=== PATIENT | female | born 1990 | race Caucasian/White ===

== ENCOUNTER 2025-05-01 08:46 | Outpatient (REF) | payer BC, SELFPAY ==
--- NOTE | ~2025-05-01 | XR_ITS ---
EXAMINATION: XR SKULL CLINICAL INFORMATION: M95.2 - Other acquired deformity of head COMPARISON: None available. TECHNIQUE: 5 views of the skull were obtained. FINDINGS: The paranasal sinuses are grossly clear. Mastoid air cells appear pneumatized. Orbits appear to be unremarkable. No fracture is evident. Dental hardware is present. XR/XR skull min 4V IMPRESSION: No gross abnormality. Electronically signed by: Abhinav Guerrero MD 05/01/2025 11:36 AM EDT
== END 2025-05-01 08:47 | disposition home or self-care (01) ==
LOC: HO.XRAY 08:46
DX: M95.2 Other acquired deformity of head (principal); R22.1 Localized swelling, mass and lump, neck; H44.002 Unspecified purulent endophthalmitis, left eye; F31.9 Bipolar disorder, unspecified; F41.9 Anxiety disorder, unspecified; F90.9 Attention-deficit hyperactivity disorder, unspecified type; J45.21 Mild intermittent asthma with (acute) exacerbation; Q79.60 Ehlers-Danlos syndrome, unspecified
CPT/HCPCS: 70260; 96127

== ENCOUNTER 2025-05-01 08:46 | Outpatient (AMB) | payer BC, SELFPAY ==
--- NOTE | 2025-05-01 09:11 | MHC.PC.OV ---
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: Patient has dentist HPI 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 xray, Medications: Family HX: Problem: The patient is a 35-year-old female presenting with concerns regarding a lump on the neck, pink eye, and general health maintenance. The patient has a history of bipolar disorder, ADHD, and anxiety, managed by her psychiatrist with lithium and topiramate. Asthma is generally inactive but can be triggered by colds. A lump on the neck has been present for two years, suspected to be a lipoma, with an ultrasound planned. The patient experienced pink eye, using erythromycin ointment effectively, and attributes recurrence to her dog sleeping on her bed. 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 left eye pink eye-erythromycin ointment cervical neck posterior, more towards the left, lump appears to be a lipoma-for 2 years genetics referral [facility] [place] [facility], blue tint on scleara, hypermobile joints [facility] Medical History (Updated 05/03/25 @ 00:27 by DEBO Pizano) Asthma Anxiety ADHD Bipolar 1 disorder Surgical History [place] teeth removed Social History Household Members: Children Housing: House Alcohol intake: current Patient Tobacco Use Status: Current everyday Tobacco user Tobacco use type: Cigarette Cigarettes Per Day: 3 service: No Current occupational status: employed 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 1. Little interest or pleasure in doing things: more than half the days 2. Feeling down, depressed, or hopeless: several days 3. Trouble falling or staying asleep, or sleeping too much: several days 4. Feeling tired or having little energy: more than half the days 5. Poor appetite or overeating: more than half the days 6. Feeling bad about yourself - or that you are a failure or have let yourself or your family down: several days 7. Trouble concentrating on things, such as reading the newspaper or watching television: several days 8. Moving or speaking so slowly that other people could have noticed. Or the opposite - being so fidgety or restless that you have been moving around a lot more than usual: several days 9. Thoughts that you would be better off or of hurting yourself in some way: not at all Total score: 11 Depression Screening Interpretation: Positive Depression Screening Done: Yes 20475 - PHQ-9 Billing: Yes Source: Developed by Drs. Mc Syed, Margarita Spears, Minh Polo and colleagues, with an educational [place] from [employer]. Thrive Questionnaire Date Thrive assessed: 05/01/25 I am a: Patient What is your living situation today?: I have a steady place to live Within the past 12 months, did the food you bought not last and you didn't have the money to get more?: Never true Within the past 12 months, did you worry whether your food would run out before you got money to buy more?: Often true Do you have trouble paying for medicines?: No Do you have trouble getting transportation to medical appointments?: No Do you have trouble paying your heating and electricity bill?: No Do you have trouble taking care of your child, family member or friend?: No Do you have trouble with day-to-day activities such as bathing, preparing meals, shopping, managing finances, etc.?: No Are you currently unemployed and looking for a job?: No Are you interested in more education?: No Please select the resources that you would like help with: None Currently or been in a relationship where the following occur: No concerns reported THRIVE Score: 1 AUDIT C Alcohol Use Questionnaire (AUDIT-C) 1. How often do you have a drink containing alcohol?: 2-4 times a month 2. How many drinks containing alcohol do you have on a typical day when you are drinking?: 1 or 2 3. How often do you have six or more drinks on one occasion?: Never Total Score: 2 JOAQUINA-7 AMB Questionnaire JOAQUINA-7 Date JOAQUINA - 7 assessed: 05/01/25 Feeling nervous, anxious, or on edge: 1 = Several days Not being able to stop or control worryin = Several days Worrying too much about different things: 1 = Several days Trouble relaxin = Several days Being so restless that it is hard to sit still: 1 = Several days Becoming easily annoyed or irritable: 1 = Several days Feeling afraid as if something awful might happen: 0 = Not at all Total JOAQUINA-7 score (0-4 normal; 5-9 mild; 10-14 moderate; 15-21 severe): 6 Source: Developed by Drs. Mc Syed, Margarita Spears, Minh Polo and colleagues, with an educational h[place] from [employer]. JOAQUINA-7 Assessment Billing JOAQUINA-7 Assessment Tool: JOAQUINA-7 Assessment 00749 Review of Systems Const Reports fatigue (Especially after eating) and Denies headache(s) Eyes Reports itchy eyes (and erythematous in the corners of eyes), Denies loss of vision and Reports other (Bluish tint sclera) ENT Denies vertigo, Denies dizziness, Denies headache(s) and Denies sore throat Card Denies chest pain, Denies leg edema and Denies lightheadedness Resp Denies cough, Denies hemoptysis and Denies wheezing GI Denies abdominal pain, Denies melena, Denies constipation, Denies diarrhea and Denies vomiting Denies urinary frequency, Denies dysuria and Denies urinary urgency Musc Denies arthralgias, Denies joint swelling, Denies numbness, Denies tingling and Reports other (Hypermobile joints) Neuro Denies Abnormal speech present, Denies behavioral changes, Denies vertigo, Denies dizziness, Denies headache(s), Denies loss of vision, Denies memory loss, Denies numbness and Denies tingling Psych Denies anxiety, Denies behavioral changes, Denies depression, Denies memory loss and Denies panic attacks Endo Reports fatigue (Especially after eating) Delano/Lymph Denies easy bleeding and Denies easy bruising Aller/Immun Reports itchy eyes (and erythematous in the corners of eyes) and Denies wheezing Physical exam (Primary Care) Vital Signs: Last Vital Signs Temp 97.3 F 05/01/25 09:27 Pulse 70 05/01/25 09:27 Resp 18 05/01/25 09:27 BP 92/60 05/01/25 09:27 Pulse Ox 98 05/01/25 09:27 Oxygen Delivery Method Room Air 05/01/25 09:27 BMI result Body Mass Index 26.4 Tobacco/Smoking Status: Tobacco use Status Tobacco use date assessed 05/01/25 05/01/25 09:20 Patient Tobacco Use Status Current everyday Tobacco 05/01/25 09:36 Tobacco use type Cigarette 05/01/25 09:36 PHQ-9: PHQ-9 Score PHQ-9: Total score 05/01/25 21:21 Depression Screening Interpretation: Positive Thrive Assessment: Date of Thrive Assessment Date Thrive assessed 05/01/25 05/01/25 09:20 Currently or been in a relationship where the following occur: No concerns reported Const General: healthy appearing, no acute distress, alert and awake Nutritional Appearance: well nourished Orientation/consciousness: oriented to person, oriented to place and oriented to time HENMT Head: Yes palpable skull fracture (Old (deformity the left frontal)) Ears: TM's normal bilaterally General nose exam: Normal nasal mucous membranes and turbinates present Eyes Eyelids: Yes eyelid abnormality (Left eye stye) Conjunctivae: conjunctival abnormal bilateral (Erythematous) Sclerae: scleral abnormal bilateral (blue tint to bilateral sclera) scleral exudate purulent Pupils: Equal, round and reactive pupils present Neck Neck: Yes no lymphadenopathy and Yes no JVD Thyroid: Thyroid normal Carotids: no bruits Resp Effort & Inspection: normal respiratory effort and not tachypneic Auscultation: no crackles, no rales, no rhonchi and no wheezes Cardio Rate: regular rate Rhythm: regular rhythm Heart sounds: no murmurs and normal S1 and S2 GI Palpation (GI): Soft to palpation, nontender, no hepatomegaly and no splenomegaly Auscultation: normal bowel sounds Skin General skin exam: no rashes or lesions noted and dry skin Neuro General: oriented to person, oriented to place and oriented to time Cranial nerves: Yes Equal, round and reactive pupils present Speech: No Abnormal speech present Gait exam (Neuro): Normal gait present Motor exam (neuro): no tremor noted Extrem Right upper extremity: full ROM Left upper extremity: full ROM Right lower extremity: full ROM; no edema Left lower extremity: full ROM; no edema Psych Mental Status: mental status grossly normal Speech and movement: Normal speech and movement present Affect: normal affect Attitude: cooperative Thought process: Normal thought process present Coding Level of Care Code New Pt Level 4 (78246) Diagnoses 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 Localized swelling, mass and lump, neck R22.1 Purulent eye infection H44.009 Bipolar 1 disorder F31.9 Anxiety F41.9 Attention deficit hyperactivity disorder (ADHD), unspecified ADHD type F90.9 Attention deficit-hyperactivity disorder type: unspecified Mild intermittent asthma with acute exacerbation J45.21 Asthma severity: mild Asthma persistence: intermittent Asthma complication type: with acute exacerbation 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 We will order a skull x-ray to further evaluate. (2) Localized swelling, mass and lump, neck: Code(s): R22.1 - Localized swelling, mass and lump, neck Category: Medical Plan: An ultrasound is planned to evaluate the lump on the neck, suspected to be a lipoma. (3) Purulent eye infection: Code(s): H44.009 - Unspecified purulent endophthalmitis, unspecified eye Category: Medical Plan: Erythromycin ointment is prescribed for treatment of pink eye. (4) Bipolar 1 disorder: Code(s): F31.9 - Bipolar disorder, unspecified Category: Medical Plan: The patient continues management with lithium and topiramate under the care of her psychiatrist. (5) Anxiety: Code(s): F41.9 - Anxiety disorder, unspecified Category: Medical Plan: Anxiety is managed alongside bipolar disorder by the psychiatrist. (6) ADHD: Code(s): F90.9 - Attention-deficit hyperactivity disorder, unspecified type Category: Medical Qualifiers: Attention deficit-hyperactivity disorder type: unspecified Qualified Code(s): F90.9 - Attention-deficit hyperactivity disorder, unspecified type Plan: The patient is not currently on medication for ADHD due to bipolar disorder management. (7) Asthma: Code(s): J45.909 - Unspecified asthma, uncomplicated Category: Medical Qualifiers: Asthma severity: mild Asthma persistence: intermittent Asthma complication type: with acute exacerbation Qualified Code(s): J45.21 - Mild intermittent asthma with (acute) exacerbation Plan: Asthma is generally inactive but an albuterol inhaler is prescribed for emergency use. 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 Referral for genetic testing is planned to confirm suspected Andrez-Danlos Syndrome. Orders: Orders US soft tiss head and/or neck 05/01/25 R22.1 - Localized swelling, mass and lump, neck Comprehensive [place]. Panel Fast 05/01/25 Z00.00 - Encounter for general adult medical examination without abnormal findings Lipid Panel 05/01/25 Z00.00 - Encounter for general adult medical examination without abnormal findings TSH reflex Free T4 05/01/25 Z00.00 - Encounter for general adult medical examination without abnormal findings UA CC w/rflx Micro + Cult 05/01/25 Z00.00 - Encounter for general adult medical examination without abnormal findings Vitamin D 25-OH Total 05/01/25 Z00.00 - Encounter for general adult medical examination without abnormal findings XR skull min 4V 05/01/25 M95.2 - Other acquired deformity of head Complete Blood Count Auto Diff 05/01/25 Z00.00 - Encounter for general adult medical examination without abnormal findings Referrals Genetics Referral Q79.60 - Andrez-Danlos syndrome, unspecified Medications: New erythromycin 0.5 inches ophthalmic (eye) QID 84 grams 0RF albuterol sulfate 90 mcg/actuation (Ventolin HFA) 2 puffs inhalation Q4-6H PRN 8.5 grams 2RF shortness of breath or wheezing
[2025-05-01 09:27] VITALS: BP 92/60; PULSE 70; RESP 18; TEMP 36.3; O2SAT 98; BMI 26.4
--- OUTSIDE RECORDS SUMMARY | 2025-05-01 09:51 | XMS_ITS | Clinical Summary ---
Author Organization [facility] Address [address] [place] [phone] Phone Care Team Providers Care Raw Scales Operator Name Role Phone Unavailable Primary Care Provider Unavailabl e Immunizations Immunization Administration Dates Next Due DTaP 03/31/1995, 2,1990,1990,1990 Hep B, ped/adol 05/15/1995,12/06/1994,10/19/1994 Hib (PRP-T) 07/03/1991, 1,1990,1989 Influenza 06/17/2005,06/11/2003,07/26/2002 MMR 03/31/1995,07/03/1991 OPV 03/31/1995, 2,1990,1989 Td (adult) ([facility] [place]), 5 Lf t etanus toxoid, PF, adsorbed 06/28/2001 Social History Tobacco Use Types Packs/Day Years Used Date Smoking Tobacco: Never Assessed Comments Unknown Sex and Gender Information Value Date Recorded Sex Assigned at Not on file Legal Sex Female 6:09 PM EDT Gender Identity Not on file Sexual Orientation Not on file Plan of Treatment Health Maintenance Due Date Last Done Comments DTaP,Tdap,and Td Vaccines (6 - Tdap) 06/29/2001 06/28/2001, 03/31/1995, 12/02/1991, Additional history exists Varicella Vaccines (1 of 2 - 13+ 2-dose series) 2003 HPV Vaccines (1 - 3-dose SCDM series) 2017 Influenza Vaccines (#1) 2025 06/17/20 05, 06/11/2003, 07/26/2002 COVID-19 Vaccine ( season) 2025 HIB Vaccines Completed 07/03/1991, 12/19, 1990, Additional history exists IPV Vaccines Completed 03/31/1995, 11/19, 1990, Additional history exists MMR Vaccines Completed 03/31/1995, 07/03/1991 Hepatitis B Vaccines Completed 05/15/1995, 12/06/1994, 10/19/1994 Hepatitis A Vaccines Aged Out No long er eligible based on patient's age to complete this topic Men B Vaccine Aged Out No longer elig ible based on patient's age to complete this topic Meningococcal Vaccine Aged Out No loraine juancho eligible based on patient's age to complete this topic Pneumococcal Vaccine Aged Out No long er eligible based on patient's age to complete this topic
--- OUTSIDE RECORDS SUMMARY | 2025-05-01 09:51 | XMS_ITS | Clinical Summary ---
Author Organization [employer] Address [address] [place] [address] Care Team Providers Care Econometrician Name Role Phone Unavailable Primary Care Provider Unavailabl e Social History Tobacco Use Types Packs/Day Years Used Date Smoking Tobacco: Never Assessed Comments Unknown Sex and Gender Information Value Date Recorded Sex Assigned at Not on file Legal Sex Female 10:14 AM EDT Gender Identity Not on file Sexual Orientation Not on file Plan of Treatment Health Maintenance Due Date Last Done Comments Depression Screening 1990 HIV Screening 1990 SDOH Screening 1990 Disability Screening 1990 Alcohol/Substance Use Screening 2002 Tobacco Screening 2002 Family Planning (PISQ) 2005 HPV Vaccines (1 - 3-dose series) 2005 Hepatitis C Screening 2008 DTaP/Tdap/Td Vaccines (1 - Tdap) 2009 Hepatitis B Vaccines (1 of 3 - 19+ 3-dose series) 2009 Pap Smear 2011 Cervical Cancer Screening 2020 HPV/Cotest 2020 COVID-19 Vaccine (1 - 2023-2 5 season) 2025 Influenza Vaccine (#1) 2025 Zoster Vaccines (1 of 2) 2040 RSV Patients and Pa tients Aged 60 years or older (1 - 1-dose 75+ series) 2065 HIB Vaccines Aged Out No longer eligi ble based on patient's age to complete this topic Hepatitis A Vaccines Aged Out No long er eligible based on patient's age to complete this topic IPV Vaccines Aged Out No longer eligi ble based on patient's age to complete this topic Meningococcal B Vaccine Aged Out No l onger eligible based on patient's age to complete this topic Meningococcal Vaccine Aged Out No loraine juancho eligible based on patient's age to complete this topic Pneumococcal Vaccine: Pediat rics (0 to 5 Years) and At-Risk Patients (6 to 49) Years Aged Out No longer eligible b ased on patient's age to complete this topic RSV under 20 months Aged Out No longe r eligible based on patient's age to complete this topic Rotavirus Vaccines Aged Out No longer eligible based on patient's age to complete this topic Insurance [facility]
--- OUTSIDE RECORDS SUMMARY | 2025-05-01 09:51 | XMS_ITS | Encounter Summary ---
Author Organization [facility] Address [address] [place] [phone] Phone Care Team Providers Care Ditch Repairer Name Role Phone Unavailable Primary Care Provider Unavailabl e Encounter Details Date Type Department Care Team (Late st Contact Info) Description 01/07/2018 Conversion [facility]counter [facility] [address] [place] [address] Social History Tobacco Use Types Packs/Day Years Used Date Smoking Tobacco: Never Assessed Comments Unknown Sex and Gender Information Value Date Recorded Sex Assigned at Not on file Legal Sex Female 6:09 PM EDT Gender Identity Not on file Sexual Orientation Not on file documented as of this encounter Plan of Treatment Not on file documented as of this encounter Visit Diagnoses Not on filedocumented in this encounter
--- OUTSIDE RECORDS SUMMARY | 2025-05-01 09:51 | XMS_ITS ---
Author Name [facility] Organization Unknown Care Team Organization Name Specialty Phone Email Start Date End Da te [facility] Kevin Cardoza [facility] 06/28/2022
== END 2025-05-01 10:25 | disposition home or self-care (01) ==
DX: M95.2 Other acquired deformity of head (principal); R22.1 Localized swelling, mass and lump, neck; H44.009 Unspecified purulent endophthalmitis, unspecified eye; F31.9 Bipolar disorder, unspecified; F41.9 Anxiety disorder, unspecified; F90.9 Attention-deficit hyperactivity disorder, unspecified type; J45.21 Mild intermittent asthma with (acute) exacerbation; Q79.60 Ehlers-Danlos syndrome, unspecified

== ENCOUNTER → 2025-05-01 10:36 | Outpatient (BNV) | payer BC, SELFPAY | PROVIDERS: Visit Provider Radiology Diagnostic Radiology | DX: M95.2 Other acquired deformity of head (principal) | CPT/HCPCS: 70260 ==

== ENCOUNTER 2025-05-03 09:23 | Outpatient (REF) | payer BC, SELFPAY ==
--- OUTSIDE RECORDS SUMMARY | 2025-05-03 09:25 | XMS_ITS | Encounter Summary ---
Author Organization [facility] Address [address] [place] [phone] Phone Care Team Providers Care Manager Programming Name Role Phone Unavailable Primary Care Provider Unavailabl e Encounter Details Date Type Department Care Team (Late st Contact Info) Description 01/07/2018 Conversion Encounter [facility] [address] [place] [address] Social History Tobacco Use Types Packs/Day Years [...]
--- OUTSIDE RECORDS SUMMARY | 2025-05-03 09:25 | XMS_ITS | Clinical Summary ---
Author Organization [employer] Address [address] [place] [address] Care Team Providers Care Instructor Bus Trolley And Taxi Name Role Phone Unavailable Primary Care Provider [...] patient's age to complete this topic Insurance [facility]
--- OUTSIDE RECORDS SUMMARY | 2025-05-03 09:26 | XMS_ITS | Clinical Summary ---
Author Organization [facility] Address [address] [place] [phone] Phone Care Team Providers Care Short Story Writer Name Role Phone Unavailable Primary Care Provider Unavailabl e Immunizations Immunization Administration Dates Next Due DTaP 03/31/1995, 2,1990,1990,1990 Hep B, ped/adol 05/15/1995,12/06/1994,10/19/1994 Hib (PRP-T) 07/03/1991, 1,1990,1989 Influenza 06/17/2005,06/11/2003,07/26/2002 MMR 03/31/1995,07/03/1991 OPV 03/31/1995, 2,1990,1989 Td (adult) ([facility]), 5 Lf t etanus toxoid, PF, adsorbed [...]
[2025-05-03 09:39] LABS: MANUAL DIFF FLAG NO
[2025-05-03 09:51] LABS: Hematocrit 41.3 % (37.0-47.0); Hemoglobin 13.9 g/dl (12.0-16.0); Imm Gran Abs Auto 0.03 X10*3/uL (0.00-0.03); Imm Gran Pct Auto 0.4 % (0.0-0.4); Lymphocytes Absolute Auto 2.3 X10*3/uL (1.2-4.9); Mean Corpuscular HGB Conc 33.7 g/dl (31.0-35.0); Mean Corpuscular Hemoglobin 32.4 pg (27.0-33.0); Mean Corpuscular Volume 96.3 fL (80.0-98.0); NRBC Abs Auto 0.000 X10*3/uL (0.0-0.012); NRBC Pct Auto 0.0 /100WBC (0.0-0.2); Platelet Count 333 X10*3/uL (160-400); Red Blood Count 4.29 X10*6/uL (4.20-5.50); White Blood Count 8.0 X10*3/uL (4.8-10.8)
[2025-05-03 10:27] LABS: Alanine Aminotransferase 17 U/L (0-31); Albumin Level 4.6 g/dL (3.5-5.0); Alkaline Phosphatase 58 U/L (39-117); Anion Gap 13 (12-20); Aspartate Amino Transferase 26 U/L (5-31); Blood Urea Nitrogen 9 mg/dL (9-16); Calcium 9.2 mg/dL (8.4-10.2); Carbon Dioxide 23 mmol/L (22-29); Chloride 111 mmol/L (96-108); Cholesterol 156 mg/dL (<200); Estimated Glomerular Filt Rate > 60; HDL Cholesterol 59 mg/dL (>40); Potassium 4.1 mmol/L (3.3-5.1); Sodium 143 mmol/L (135-145); Total Protein 7.6 g/dL (6.5-8.0); Triglycerides 86 mg/dL (<150)
[2025-05-03 12:02] LABS: Appearance Urine Clear; Glucose Urine UA Negative (Negative); PH 5.5 (5.0-9.0); Specific Gravity - Urine 1.020 (1.005-1.025); UMIC TRIGGER UACC YES
[2025-05-03 12:09] LABS: UACC Culture Trigger YES
== END 2025-05-03 09:24 | disposition home or self-care (01) ==
LOC: HO.LAB 09:23
DX: Z00.00 Encounter for general adult medical examination without abnormal findings (principal); Z13.6 Encounter for screening for cardiovascular disorders; Z13.0 Encounter for screening for diseases of the blood and blood-forming organs and certain disorders involving the immune mechanism; Z13.29 Encounter for screening for other suspected endocrine disorder
CPT/HCPCS: 36415; 80053; 80061; 81001; 81003; 82306; 84443; 85025; 87086

== ENCOUNTER 2025-06-16 08:22 | Outpatient (AMB) | payer BC, SELFPAY ==
--- NOTE | 2025-06-16 08:28 | MHC.PC.OV ---
Vital Signs 06/16/25 08:35 Height 5 ft 3 in Weight 152 lb 4 oz BMI 27.0 BP 126/82 Blood Pressure Location Lt brachial Position Sitting Pulse 80 Pulse Source Pulse Oximeter Temp 97.3 F Temp Source Temporal Artery Scan Pulse Oximetry (%) 98 Oxygen Delivery Method Room Air Intake Visit Reasons: annual exam Allergies From [facility] Allergy (Intermediate, Uncoded 06/16/25 08:41) INVOLUNTARY SPASMS Medication List - Last Reconciled 06/16/25 by DEBO Pizano albuterol sulfate 90 mcg/actuation (Ventolin HFA) 2 puffs inhalation Q4-6H PRN lithium carbonate 300 mg PO BEDTIME topiramate (Topamax) 25 mg PO BID Tobacco use date assessed: 06/16/25 Dental Screening Dental Screen Date: 06/16/25 Did you have a dental visit in the last 12 months?: Yes Did you have a dental problem in the last 6 months where you did not have access to dental care?: No Was dental information given to patient?: Patient has dentist HPI annual exam HPI Details The patient is presenting for annual physical Dentist: up to date Eye: went years ago and her eyes were ok Snellen: Right: Left: Corrected vision:no STI screening: Colonoscopy: Pap Smer: up to date PHQ-9: Flu: not usually COVID: x2 Tdap: given in office today Diet:regular Exercise: no, occasionally goes for walks She is seeing her psychiatry once every quarter. NO therapist because of schedule handling being a single mother. The patient is a 35-year-old female presenting for an annual visit and to review results and for health maintenance. A recent skull x-ray was unremarkable. Recent laboratory results were also largely unremarkable, with normal cholesterol, liver enzymes, and kidney function. Her chloride was slightly elevated, and urinalysis showed trace blood, but a urine culture revealed only normal jose luis with no growth. The patient reports an official diagnosis of autism. She is managed by a psychiatrist, whom she sees quarterly, for a psychiatric condition treated with lithium and Topamax. The patient is considering adding an antidepressant and plans to discuss this with her psychiatrist. She has had a therapist in the past but is not currently in therapy due to challenges related to being a single parent. Regarding health maintenance, the patient's Pap smear is up to date, and she recently had a dental visit. She has received two doses of the Pfizer COVID-19 vaccine. Her last eye exam was years ago, and she reports some difficulty reading new stove clocks with blue lights but does not wear glasses. Her tetanus vaccination is due every 10 years and she received a booster during this visit. 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 1. Little interest or pleasure in doing things: more than half the days 2. Feeling down, depressed, or hopeless: several days 3. Trouble falling or staying asleep, or sleeping too much: several days 4. Feeling tired or having little energy: more than half the days 5. Poor appetite or overeating: more than half the days 6. Feeling bad about yourself - or that you are a failure or have let yourself or your family down: several days 7. Trouble concentrating on things, such as reading the newspaper or watching television: several days 8. Moving or speaking so slowly that other people could have noticed. Or the opposite - being so fidgety or restless that you have been moving around a lot more than usual: several days 9. Thoughts that you would be better off or of hurting yourself in some way: not at all Total score: 11 Depression Screening Interpretation: Positive Depression Screening Done: Yes Source: Developed by Drs. Mc Syed, Margarita Spears, Minh Polo and colleagues, with an educational h[place] from [employer]. Thrive Questionnaire Date Thrive assessed: 04/24/25 I am a: Patient What is your living situation today?: I have a steady place to live Within the past 12 months, did the food you bought not last and you didn't have the money to get more?: Never true Within the past 12 months, did you worry whether your food would run out before you got money to buy more?: Often true Do you have trouble paying for medicines?: No Do you have trouble getting transportation to medical appointments?: No Do you have trouble paying your heating and electricity bill?: No Do you have trouble taking care of your child, family member or friend?: No Do you have trouble with day-to-day activities such as bathing, preparing meals, shopping, managing finances, etc.?: No Are you currently unemployed and looking for a job?: No Are you interested in more education?: No Please select the resources that you would like help with: None Currently or been in a relationship where the following occur: No concerns reported THRIVE Score: 1 AUDIT C Alcohol Use Questionnaire (AUDIT-C) 1. How often do you have a drink containing alcohol?: 2-4 times a month 2. How many drinks containing alcohol do you have on a typical day when you are drinking?: 1 or 2 3. How often do you have six or more drinks on one occasion?: Never Total Score: 2 JOAQUINA-7 AMB Questionnaire JOAQUINA-7 Date JOAQUINA - 7 assessed: 05/01/25 Feeling nervous, anxious, or on edge: 1 = Several days Not being able to stop or control worryin = Several days Worrying too much about different things: 1 = Several days Trouble relaxin = Several days Being so restless that it is hard to sit still: 1 = Several days Becoming easily annoyed or irritable: 1 = Several days Feeling afraid as if something awful might happen: 0 = Not at all Total JOAQUINA-7 score (0-4 normal; 5-9 mild; 10-14 moderate; 15-21 severe): 6 Source: Developed by Drs. Mc Syed, Margarita Spears, Minh Polo and colleagues, with an educational h[place] from [employer]. Review of Systems Const Denies headache(s) Eyes Denies loss of vision ENT Denies vertigo, Denies dizziness, Denies headache(s) and Denies sore throat Card Denies chest pain, Denies leg edema and Denies lightheadedness Resp Denies cough, Denies hemoptysis and Denies wheezing GI Denies abdominal pain, Denies melena, Denies constipation, Denies diarrhea and Denies vomiting Denies urinary frequency, Denies dysuria and Denies urinary urgency Musc Denies arthralgias, Denies joint swelling, Denies numbness and Denies tingling Neuro Denies Abnormal speech present, Denies behavioral changes, Denies vertigo, Denies dizziness, Denies headache(s), Denies loss of vision, Denies memory loss, Denies numbness and Denies tingling Psych Denies anxiety, Denies behavioral changes, Denies depression, Denies memory loss and Denies panic attacks Delano/Lymph Denies easy bleeding and Denies easy bruising Aller/Immun Denies wheezing Physical exam (Primary Care) Vital Signs: Last Vital Signs Temp 97.3 F 06/16/25 08:35 Pulse 80 06/16/25 08:35 BP 126/82 06/16/25 08:35 Pulse Ox 98 06/16/25 08:35 Oxygen Delivery Method Room Air 06/16/25 08:35 BMI result Body Mass Index 27.0 Tobacco/Smoking Status: Tobacco use Status Tobacco use date assessed 06/16/25 06/16/25 08:39 Patient Tobacco Use Status Current everyday Tobacco 06/16/25 08:30 Tobacco use type Cigarette 06/16/25 08:30 PHQ-9: PHQ-9 Score PHQ-9: Total score 11 06/16/25 09:02 Depression Screening Interpretation: Positive Thrive Assessment: Date of Thrive Assessment Date Thrive assessed 04/24/25 06/16/25 08:30 Currently or been in a relationship where the following occur: No concerns reported Const General: healthy appearing, no acute distress, alert and awake Nutritional Appearance: well nourished Orientation/consciousness: oriented to person, oriented to place and oriented to time HENMT Ears: TM's normal bilaterally General nose exam: Normal nasal mucous membranes and turbinates present Eyes Conjunctivae: conjunctivae normal Sclerae: sclerae normal Pupils: Equal, round and reactive pupils present Neck Neck: Yes no lymphadenopathy and Yes no JVD Thyroid: Thyroid normal Carotids: no bruits Resp Effort & Inspection: normal respiratory effort and not tachypneic Auscultation: no crackles, no rales, no rhonchi and no wheezes Cardio Rate: regular rate Rhythm: regular rhythm Heart sounds: no murmurs and normal S1 and S2 GI Palpation (GI): Soft to palpation, nontender, no hepatomegaly and no splenomegaly Auscultation: normal bowel sounds Skin General skin exam: no rashes or lesions noted and dry skin Neuro General: oriented to person, oriented to place and oriented to time Cranial nerves: Yes Equal, round and reactive pupils present Speech: No Abnormal speech present Gait exam (Neuro): Normal gait present Motor exam (neuro): no tremor noted Deep tendon reflexes (DTR's): Right triceps reflex intensity grade: 2+, Left triceps reflex intensity grade: 2+, Rt Biceps (C5, C6): 2+, Left biceps reflex intensity grade: 2+, Right brachioradialis reflex intensity grade: 2+, Left brachioradialis reflex intensity grade: 2+, Right patellar reflex intensity grade: 2+ and Left patellar reflex intensity grade: 2+ Extrem Right upper extremity: full ROM Left upper extremity: full ROM Right lower extremity: full ROM; no edema Left lower extremity: full ROM; no edema Psych Mental Status: mental status grossly normal Speech and movement: Normal speech and movement present Affect: normal affect Attitude: cooperative Thought process: Normal thought process present Immunizations Boostrix Tdap 2.5 Lf unit-8 mcg-5 Lf/0.5 mL intramuscular syringe Performing Provider: DEBO Pizano [facility] Administered by: MYRIAM Edwards on 06/16/25 09:01 Dose Route Admin Location Dispensed Lot Number Expiration Date [facility] Housekeeping And Laundry Team Leader 0.5 mL IM Left Deltoid 0.5 mL [id number] 11/15/27 76168-512-72 [place] Total Dispensed Waste 0.5 mL 0 % VIS Given Date VIS Provided VIS Publication Date 06/16/25 Single Vaccine 21 Eligibility Eligibility Date Funding Source Not [facility] Eligible 06/16/25 Private Results Reviewed Results Reviewed: Laboratory Tests 05/03/25 09:37 WBC 8.0 RBC 4.29 Hgb 13.9 Hct 41.3 MCV 96.3 MCH 32.4 MCHC 33.7 RDW 12.1 Plt Count 333 Sodium 143 Potassium 4.1 Chloride 111 H Carbon Dioxide 23 Anion Gap 13 BUN 9 Creatinine 0.78 Estimated GFR > 60 Fasting Glucose 90 Calcium 9.2 Total Bilirubin 0.4 AST 26 ALT 17 Alkaline Phosphatase 58 Total Protein 7.6 Albumin 4.6 Triglycerides 86 Cholesterol 156 LDL Cholesterol, Calc 80 HDL Cholesterol 59 25-OH Vitamin D Total 47.2 TSH 1.75 Urine Color Yellow Urine Appearance Clear Urine pH 5.5 Ur Specific [place] 1.020 Urine Protein Negative Urine Glucose (UA) Negative Urine Ketones Negative Urine Blood Trace H Urine Nitrite Negative Ur Leukocyte Esterase Small (1+) H Urine RBC 0-2 Urine WBC 6-10 H Ur Squamous Epith Cells 3-5 Urine Bacteria 1+ Hyaline Casts 0-2 Coding Level of Care Code Est Pt Prev Care [id number]) Diagnoses Annual physical exam Z00.00 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 Localized swelling, mass and lump, neck R22.1 Bipolar 1 disorder F31.9 Anxiety F41.9 Attention deficit hyperactivity disorder (ADHD), unspecified ADHD type F90.9 Attention deficit-hyperactivity disorder type: unspecified Mild intermittent asthma with acute exacerbation J45.21 Asthma complication type: with acute exacerbation Asthma persistence: intermittent Asthma severity: mild 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 Tdap injection given in office today. Up-to-date on dental evaluation but has not an eye evaluation for an extended period. Recommended to make an appointment. Up-to-date on Pap smear. (2) Skull deformity: Code(s): M95.2 - Other acquired deformity of head Category: Medical Plan: Patient reports an old traumatic injury to head leaving a deformity in the frontal area. Skull x-ray was performed and was unremarkable. (3) Localized swelling, mass and lump, neck: Code(s): R22.1 - Localized swelling, mass and lump, neck Category: Medical Plan: An ultrasound is planned to evaluate the lump on the neck, suspected to be a lipoma. (4) Bipolar 1 disorder: Code(s): F31.9 - Bipolar disorder, unspecified Category: Medical Plan: The patient continues management with lithium and topiramate under the care of her psychiatrist. Reports that she is planning on adding an antidepressant and we will discuss this with her psychiatrist at her next visit. (5) Anxiety: Code(s): F41.9 - Anxiety disorder, unspecified Category: Medical Plan: Anxiety is managed alongside bipolar disorder by the psychiatrist. Encouraged CBT. The patient reports that her scheduled has a single mother does not allows this at the time. Denies SI/HI. Follow up with Psychiatry as scheduled (6) ADHD: Code(s): F90.9 - Attention-deficit hyperactivity disorder, unspecified type Category: Medical Qualifiers: Attention deficit-hyperactivity disorder type: unspecified Qualified Code(s): F90.9 - Attention-deficit hyperactivity disorder, unspecified type Plan: The patient is not currently on medication for ADHD due to bipolar disorder management. Follow up with Psychiatry as scheduled (7) Asthma: Code(s): J45.909 - Unspecified asthma, uncomplicated Category: Medical Qualifiers: Asthma complication type: with acute exacerbation Asthma persistence: intermittent Asthma severity: mild Qualified Code(s): J45.21 - Mild intermittent asthma with (acute) exacerbation Plan: Asthma is generally inactive but an albuterol inhaler is prescribed for emergency use. 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 Referral for genetic testing is planned to confirm suspected Andrez-Danlos Syndrome. All referral has been denied by facilities that her only taking kids at this time due to a decreasing available providers. Plan Patient to return for annual visit or sooner for any concerns. Orders: Orders Comprehensive [place]. Panel Fast 1 Year F31.9 - Bipolar disorder, unspecified, F41.9 - Anxiety disorder, unspecified, F90.9 - Attention-deficit hyperactivity disorder, unspecified type, J45.21 - Mild intermittent asthma with (acute) exacerbation UA CC w/rflx Micro + Cult 1 Year F31.9 - Bipolar disorder, unspecified, F41.9 - Anxiety disorder, unspecified, F90.9 - Attention-deficit hyperactivity disorder, unspecified type, J45.21 - Mild intermittent asthma with (acute) exacerbation TDaP Immunization Today Z23 - Encounter for immunization Complete Blood Count Auto Diff 1 Year F31.9 - Bipolar disorder, unspecified, F41.9 - Anxiety disorder, unspecified, F90.9 - Attention-deficit hyperactivity disorder, unspecified type, J45.21 - Mild intermittent asthma with (acute) exacerbation Lipid Panel 1 Year F31.9 - Bipolar disorder, unspecified, F41.9 - Anxiety disorder, unspecified, F90.9 - Attention-deficit hyperactivity disorder, unspecified type, J45.21 - Mild intermittent asthma with (acute) exacerbation TSH reflex Free T4 1 Year F31.9 - Bipolar disorder, unspecified, F41.9 - Anxiety disorder, unspecified, F90.9 - Attention-deficit hyperactivity disorder, unspecified type, J45.21 - Mild intermittent asthma with (acute) exacerbation Vitamin D 25-OH Total 1 Year F31.9 - Bipolar disorder, unspecified, F41.9 - Anxiety disorder, unspecified, F90.9 - Attention-deficit hyperactivity disorder, unspecified type, J45.21 - Mild intermittent asthma with (acute) exacerbation
[2025-06-16 08:35] VITALS: BP 126/82; PULSE 80; TEMP 36.3; O2SAT 98; BMI 27.0
--- OUTSIDE RECORDS SUMMARY | 2025-06-16 08:39 | XMS_ITS | Encounter Summary ---
Author Organization [facility] Address [address] [place] [id number] Phone Care Team Providers Care Folded Towel Machine Operator Name Role Phone Unavailable Primary Care Provider Unavailabl e Encounter Details Date Type Department Care Team (Late st Contact Info) Description 01/07/2018 Conversion [facility]counter [facility] [address] [place] [id number] Social History Tobacco Use Types Packs/Day Years [...]
--- OUTSIDE RECORDS SUMMARY | 2025-06-16 08:39 | XMS_ITS | Clinical Summary ---
Author Organization [facility] Address [address] [place] [phone] Phone Care Team Providers Care Vacuum Repairer Name Role Phone Unavailable Primary Care Provider Unavailabl e Immunizations Immunization Administration Dates Next Due DTaP 03/31/1995, 2,1990,1990,1990 Hep B, ped/adol 05/15/1995,12/06/1994,10/19/1994 Hib (PRP-T) 07/03/1991, 1,1990,1989 Influenza 06/17/2005,06/11/2003,07/26/2002 MMR 03/31/1995,07/03/1991 OPV 03/31/1995, 2,1990,1989 Td (adult) ([facility] [place]), 5 [...] 2025 06/17/20 05, 06/11/2003, 07/26/2002 COVID-19 Vaccine (2024- season) 2025 HIB Vaccines Completed 07/03/1991, 12/19, [...]
--- OUTSIDE RECORDS SUMMARY | 2025-06-16 08:39 | XMS_ITS | Clinical Summary ---
Author Organization [employer] Address [address] [facility] [address] [place] [address] Care Team Providers Care Airplane Engineer Name Role Phone Unavailable Primary Care Provider [...] patient's age to complete this topic Insurance [facility]
== END 2025-06-16 09:54 | disposition home or self-care (01) ==
LOC: HO.HMCH 08:23
DX: Z00.00 Encounter for general adult medical examination without abnormal findings (principal); M95.2 Other acquired deformity of head; R22.1 Localized swelling, mass and lump, neck; F31.9 Bipolar disorder, unspecified; F41.9 Anxiety disorder, unspecified; F90.9 Attention-deficit hyperactivity disorder, unspecified type; J45.21 Mild intermittent asthma with (acute) exacerbation; Q79.60 Ehlers-Danlos syndrome, unspecified; Z23 Encounter for immunization

== ENCOUNTER → 2025-06-16 08:22 | Outpatient (BNVA) | payer BC, SELFPAY | DX: Z00.00 Encounter for general adult medical examination without abnormal findings (principal); R31.9 Hematuria, unspecified; F84.0 Autistic disorder; M95.2 Other acquired deformity of head; R22.1 Localized swelling, mass and lump, neck; F31.9 Bipolar disorder, unspecified; F41.9 Anxiety disorder, unspecified; F90.9 Attention-deficit hyperactivity disorder, unspecified type; J45.21 Mild intermittent asthma with (acute) exacerbation; Q79.60 Ehlers-Danlos syndrome, unspecified; Z23 Encounter for immunization | CPT/HCPCS: 90471; 90715; 96127 ==

== ENCOUNTER 2025-06-24 14:45 | Outpatient (REF) | payer BC, SELFPAY ==
--- NOTE | ~2025-06-24 | US_ITS ---
EXAMINATION: US HEAD NECK SOFT TISSUE HISTORY: R22.1 - Localized swelling, mass and lump, neck COMPARISON: There are no prior studies available for comparison. FINDINGS: Sonographic examination of the left neck was performed for further evaluation of a palpable abnormality. There is a smoothly marginated 3.5 x 0.8 x 4.3 cm ovoid hypoechoic subcutaneous mass corresponding to the palpable findings. US/US soft tiss head and/or neck IMPRESSION: Nonspecific 3.5 x 0.8 x 4.3 cm ovoid hypoechoic subcutaneous mass corresponding to the palpable findings in the left neck. This could represent a lipoma. Confirmation with CT or MRI is suggested. Electronically signed by: Mc Marcelo MD 06/24/2025 03:28 PM [facility]
--- OUTSIDE RECORDS SUMMARY | 2025-06-24 17:49 | XMS_ITS | Clinical Summary ---
Author Organization [facility] Address [address] [place] [phone] Phone Care Team Providers Care Compliance Project Manager Name Role Phone Unavailable Primary Care Provider Unavailabl e Immunizations Immunization Administration Dates Next Due DTaP 03/31/1995, 2,1990,1990,1990 Hep B, ped/adol 05/15/1995,12/06/1994,10/19/1994 Hib (PRP-T) 07/03/1991, 1,1990,1989 Influenza 06/17/2005,06/11/2003,07/26/2002 MMR 03/31/1995,07/03/1991 OPV 03/31/1995, 2,1990,1989 Td (adult) ([facility]), 5 Lf t etanus toxoid, PF, adsorbed [...]
--- OUTSIDE RECORDS SUMMARY | 2025-06-24 17:49 | XMS_ITS | Clinical Summary ---
Author Organization [employer] Address [address] [facility] [address] [place] [address] Care Team Providers Care Home Delivery Driver Name Role Phone Unavailable Primary Care Provider [...] patient's age to complete this topic Insurance [facility]
--- OUTSIDE RECORDS SUMMARY | 2025-06-24 17:49 | XMS_ITS | Encounter Summary ---
Author Organization [facility] Address [address] [place] [phone] Phone Care Team Providers Care Emergency Vehicle Technician Name Role Phone Unavailable Primary Care Provider Unavailabl e Encounter Details Date Type Department Care Team (Late st Contact Info) Description 01/07/2018 Conversion [facility]counter [facility] [address] [place] [id number] Social History Tobacco Use Types Packs/Day Years [...]
== END 2025-06-24 14:46 | disposition home or self-care (01) ==
LOC: HO.US 14:45
DX: R22.1 Localized swelling, mass and lump, neck (principal)
CPT/HCPCS: 76536

== ENCOUNTER → 2025-06-24 14:48 | Outpatient (BNV) | payer BC, SELFPAY | PROVIDERS: Visit Provider Radiology Diagnostic Radiology | DX: R22.1 Localized swelling, mass and lump, neck (principal) | CPT/HCPCS: 76536 ==